=== PATIENT | male | born 1950 | race Caucasian/White ===

== ENCOUNTER 2024-05-24 10:11 | Emergency (ER) | payer OTHER ==
[2024-05-24] MEDS ORDERED: NA CHLORIDE 0.9% 500 ML ONE (10:48)
[2024-05-24 11:07] LABS: Absolute Lymphocytes (CBC) 1.5 K/uL (0.7-4.9); Absolute Monocytes 0.7 K/uL (0.1-1.3); Absolute Neutrophil 9.6 K/uL (1.8-8.0); Basophils % 0.4 % (0-1.3); Eosinophils % 0.3 % (0-4.4); Hematocrit 42.3 % (39.6-49.0); Hemoglobin 14.3 g/dL (13.6-17.9); Lymphocytes % 12.3 % (15.3-44.8); MCHC 33.8 g/dL (32.0-36.0); MCV 85.9 fL (80-100); MPV 7.5 fL (7.6-11.3); Monocytes % 6.2 % (3.3-12.3); Neutrophils % 80.8 % (41.7-73.7); Nucleated Red Blood Cells % 0.2 % (0-0); Platelets 313 thou/uL (152-406); RBC Red Blood Cell Count 4.93 M/uL (4.33-5.43); Red Cell Distribution Width 15.9 % (12.1-15.2)
[2024-05-24 11:20] LABS: Influenza A Ag Negative; Influenza B Ag Negative; SARS-CoV-2 Antigen Rapid Res Negative (Negative)
[2024-05-24 11:22] LABS: PT Prothrombin Time 12.3 SECONDS (9.4-12.5); Protime INR 1.17
[2024-05-24 11:26] LABS: ALT/SGPT 20 U/L (16-61); Albumin 3.8 g/dL (3.4-5.0); Albumin/Globulin Ratio 0.7 (1.1-1.8); Alkaline Phosphatase 157 U/L (45-117); Anion Gap 11.3 mEq/L (5.0-15.0); BUN Blood Urea Nitrogen 23 mg/dL (7-18); Bicarbonate 26 mEq/L (21-32); Bilirubin Direct 0.2 mg/dL (0-0.2); Bilirubin Indirect, Calculated 0.4 mg/dL (0.2-0.8); Bilirubin Total 0.6 mg/dL (0.2-1.0); Globulin 5.6 g/dL (2.3-3.5); Glomerular Filtration Rate 48 ml/min (=/>90); Glucose Level 180 mg/dL (74-106); Lipase 10 U/L (13-75); NT PRO-BNP 705 pg/mL (<450); Protein, Total 9.4 g/dL (6.4-8.2); Sodium Level 136 mEq/L (136-145)
[2024-05-24 11:28] LABS: AST/SGOT 19 U/L (15-37); Magnesium 2.3 mg/dL (1.6-2.4); Potassium 4.3 mEq/L (3.5-5.1); Troponin High Sensitivity < 3.0 pg/mL (<58.9)
--- NOTE | 2024-05-24 11:59 | RAD REPORT ---
EXAMINATION: ONE VIEW CHEST XR CLINICAL INDICATION: DYSPNEA TECHNIQUE: Frontal chest projection is submitted. Examination is limited by patient positioning and t echnique. COMPARISON: No prior exam. FINDINGS: Moderate bilateral pulmonary opacities may represent pulmonary edema or pneumonia. Trace bilateral pl eural fluid. The heart is upper limit of normal in size. Evidence of previous trauma-related rib and left shoulder findings.
--- NOTE | 2024-05-24 13:49 | ER ---
Nurse's Notes [facility] Name: Parker Gonzalez Age: 74 yrs Sex: Male : 1950 Arrival Date: 05/24/2024 Time: 10:11 Bed 14 Private MD: Diagnosis: Food in esophagus;Dyspnea, unspecified;Pneumonia due to other specified bacteria;COPD/ Chronic obstructive pulmonary disease, unspecified;Vomiting Presentation: 05/24 10:30 Chief complaint: Patient states: Shortness of breath, N/V and shortness of breath that ss began yesterday. Coronavirus screen: Client denies travel out of the [place] in the last 14 days. Ebola Screen: Patient denies exposure to infectious person. Patient denies travel to an Ebola-affected area in the 21 days before illness onset. Initial Sepsis Screen: Does the patient have a suspected source of infection? No. Patient's initial sepsis screen is negative. Risk Assessment: Do you want to hurt yourself or someone else? Patient reports no desire to harm self or others. Onset of symptoms was May 23, 2024. 10:30 Method Of Arrival: Ambulatory ss 10:30 Acuity: AARON 2 ss 16:09 Initial Sepsis Screen: Does the patient meet any 2 criteria? HR > 90 bpm. db Triage Assessment: 16:10 General: Appears in no apparent distress. Respiratory: the patient has mild shortness db of breath. Historical: - Allergies: 10:44 No Known Allergies; ss - Immunization history:: Adult Immunizations unknown. - Infectious Disease History:: Denies. - Social history:: Smoking status: unknown. Screenin:09 [facility] ED Fall Risk Assessment (Adult) History of falling in the last 3 months, db including since admission No falls in past 3 months (0 pts) Confusion or Disorientation No (0 pts) Intoxicated or Sedated No (0 pts) Impaired Gait No (0 pts) Mobility Assist Device Used No (0 pt) Altered Elimination No (0 pt) Score/Fall Risk Level 0 - 2 = Low Risk Oriented to surroundings, Maintained a safe environment. Abuse screen: Denies threats or abuse. Denies injuries from another. Nutritional screening: No deficits noted. Tuberculosis screening: No symptoms or risk factors identified. Assessment: 11:00 Reassessment: Patient appears in no apparent distress at this time. Patient and/or db family updated on plan of care and expected duration. Pain level reassessed. Patient is alert, oriented x 3, equal unlabored respirations, skin warm/dry/pink. General: Appears in no apparent distress. comfortable, Behavior is calm, cooperative. Pain: Denies pain. Neuro: Level of Consciousness is awake, alert, obeys commands, Oriented to person, place, time, situation. Cardiovascular: Rhythm is regular. Respiratory: Airway is patent Respiratory effort is even, unlabored, Respiratory pattern is regular, symmetrical, Breath sounds are coarse. 12:00 Reassessment: Patient appears in no apparent distress at this time. Patient and/or db family updated on plan of care and expected duration. Pain level reassessed. Patient is alert, oriented x 3, equal unlabored respirations, skin warm/dry/pink. 13:00 Reassessment: Patient appears in no apparent distress at this time. Patient and/or db family updated on plan of care and expected duration. Pain level reassessed. Patient is alert, oriented x 3, equal unlabored respirations, skin warm/dry/pink. 14:00 Reassessment: Patient appears in no apparent distress at this time. Patient and/or db family updated on plan of care and expected duration. Pain level reassessed. Patient is alert, oriented x 3, equal unlabored respirations, skin warm/dry/pink. Patient states feeling better. 15:13 Reassessment: CALLED [place] ER TO GIVE PT REPORT. db 15:17 Reassessment: REPORT GIVEN TO LEISA Daly RN. db 15:26 Reassessment: PATIENT AMBULATORY TO RESTROOM WITH CANE. db 16:06 Reassessment: EMS ARRIVAL FOR PATIENT TRANSFER TO THE [place]. db 16:08 Reassessment: Patient appears in no apparent distress at this time. Patient and/or db family updated on plan of care and expected duration. Pain level reassessed. Patient is alert, oriented x 3, equal unlabored respirations, skin warm/dry/pink. Vital Signs: 10:11 Resp 21; Pulse Ox 85% on R/A; ss 10:30 BP 171 / 97; Pulse 85; Resp 22; Temp 98.1(O); Pulse Ox 96% on R/A; Height 5 ft. 7 in. ; ss 11:30 BP 130 / 99; Pulse 74; Resp 22; Pulse Ox 98% on 2 lpm NC; db 13:00 BP 145 / 88; Pulse 85; Resp 20; Pulse Ox 96% on 2 lpm NC; db 14:30 BP 140 / 86; Pulse 93; Resp 18; Pulse Ox 96% on NC; db 15:15 BP 131 / 77; Pulse 114; Resp 18; Pulse Ox 97% on 2 lpm NC; db 16:00 BP 124 / 69; Pulse 108; Resp 20; Pulse Ox 98% on 2 lpm NC; db ED Course: 10:12 Patient arrived in ED. mr 10:20 Morris Bradley MD is Attending Physician. juanita 10:30 Arm band placed on left wrist. ss 10:44 Siena Mora, JAMEE is Primary Nurse. db 10:44 Triage completed. ss 10:44 EKG done, COVID swab sent to lab. Inserted saline lock: 20 gauge in right antecubital db area, using aseptic technique. Blood collected. Flushed with 10 mL NS. 10:47 Basic Metabolic Panel Sent. kb3 10:47 CBC with Diff Sent. kb3 10:47 LFT's Sent. kb3 10:47 Magnesium Sent. kb3 10:47 NT PRO-BNP Sent. kb3 10:47 PT-INR Sent. kb3 10:47 Troponin HS Sent. kb3 11:29 XRAY Chest (1 view) In Process Unspecified. EDMS 13:44 Second set of blood cultures drawn. db 15:03 Patient has correct armband on for positive identification. Bed in low position. Call db light in reach. Side rails up X 1. Pulse ox on. NIBP on. Warm blanket given. Pillow given. 16:08 Provided Education on: DISCHARGE AND FOLLOWUP. db 16:08 No provider procedures requiring assistance completed. Patient transferred, IV remains db in place. Administered Medications: 10:51 Drug: NS 0.9% IV 500 ml 500 ml IV at 1 bolus once; to be given as a bolus over 30 db minutes Volume: 500 ml; Route: IV; Rate: 1 bolus; Site: right antecubital; 12:00 Follow up: Response: No adverse reaction; IV Status: Completed infusion; IV Intake: db 500ml 14:30 Drug: Glucagon IVP 1 mg IVP once Route: IVP; Site: right antecubital; db 16:09 Follow up: Response: No adverse reaction db 14:30 Drug: Levalbuterol Inhalation 2.5 mg Inhalation once Route: Inhalation; db 16:10 Follow up: Response: No adverse reaction db 14:35 Drug: MethylPrednisoLONE IVP 125 mg IVP once Route: IVP; Site: right antecubital; db 16:10 Follow up: Response: No adverse reaction db 14:35 Drug: Ipratropium Inhalation Aerosol 0.5 mg Inhalation once Route: Inhalation; db 14:50 Drug: levofloxacin IVPB 500 mg 100 ml IVPB once over 60 mins Volume: 100 ml; Route: db IVPB; Infused Over: 60 mins; Site: right antecubital; 16:09 Follow up: Response: No adverse reaction; IV Status: Infusion continued upon transfer; db IV Intake: 75ml 14:50 Drug: morphine IVP or IV 2 mg IVP once over 4 mins Route: IVP; Infused Over: 4 mins; db Site: right antecubital; 16:10 Follow up: Response: No adverse reaction; Pain is decreased db 14:50 Drug: Ondansetron IVP 4 mg IVP once; over 2 minutes Route: IVP; Site: right antecubital;db 16:10 Follow up: Response: No adverse reaction db 15:35 Drug: morphine IVP or IV 2 mg IVP once over 4 mins Route: IVP; Infused Over: 4 mins; db Site: right antecubital; 16:10 Follow up: Response: No adverse reaction; Pain is decreased db Medication: 16:08 VIS not applicable for this client. db Intake: 12:00 IV: 500ml; Total: 500ml. db 16:09 IV: 75ml; Total: 575ml. db Outcome: 13:48 ER care complete, transfer ordered by MD. grant 16:08 Transferred by ground EMS to [facility] Transfer form completed. db X-rays sent w/ patient. 16:08 Condition: stable 16:08 Instructed on the need for transfer, 16:11 Patient left the ED. db Signatures: Dispatcher [employer] EDMorris Meneses MD MD cha Rivera, Mary, Reg Reg mr Ivett Engel, JAMEE RN ss Lorrie Perla RN RN [email or web address] Siena Mora RN RN db Corrections: (The following items were deleted from the chart) 10:57 10:47 SARS-COV-2 Antigen Rapid+I.LAB.JULIO CESAR drawn and sent. kb3 EDMS 10:57 10:47 Influenza Screen (A \T\ B)+BA.LAB.JULIO CESAR drawn and sent. kb3 EDMS
--- NOTE | 2024-05-24 13:49 | EDPHYS ---
Physician Documentation [facility] Name: Parker Gonzalez Age: 74 yrs Sex: Male : 1950 Arrival Date: 05/24/2024 Time: 10:11 Bed 14 Private MD: ED Physician Morris Bradley HPI: 05/24 13:42 This 74 yrs old Male presents to ER via Ambulatory with complaints of juanita Shortness Of Breath. 13:42 The patient has shortness of breath at rest, with light activity. Onset: The juanita symptoms/episode began/occurred yesterday. Duration: The symptoms are continuous, and are steadily getting worse. The patient's shortness of breath is aggravated by coughing. Historical: - Allergies: 10:44 No Known Allergies; ss - Immunization history:: Adult Immunizations unknown. - Infectious Disease History:: Denies. - Social history:: Smoking status: unknown. ROS: 13:42 Constitutional: Negative for fever, chills, and weight loss, Eyes: Negative for injury, juanita pain, redness, and discharge, ENT: Negative for injury, pain, and discharge, Neck: Negative for injury, pain, and swelling, Cardiovascular: Negative for chest pain, palpitations, and edema, Back: Negative for injury and pain, : Negative for injury, bleeding, discharge, and swelling, MS/Extremity: Negative for injury and deformity, Skin: Negative for injury, rash, and discoloration, Neuro: Negative for headache, weakness, numbness, tingling, and seizure, Psych: Negative for depression, anxiety, suicide ideation, homicidal ideation, and hallucinations, Allergy/Immunology: Negative for hives, rash, and allergies, Endocrine: Negative for neck swelling, polydipsia, polyuria, polyphagia, and marked weight changes, Hematologic/Lymphatic: Negative for swollen nodes, abnormal bleeding, and unusual bruising, 13:42 Respiratory: Positive for cough, shortness of breath, wheezing, expiratory, 13:42 Abdomen/GI: Positive for nausea and vomiting, abdominal cramps, Exam: 13:42 Constitutional: This is a well developed, well nourished patient who is awake, alert, juanita and in no acute distress. Head/Face: Normocephalic, atraumatic. Eyes: Pupils equal round and reactive to light, extra-ocular motions intact. Lids and lashes normal. Conjunctiva and sclera are non-icteric and not injected. Cornea within normal limits. Periorbital areas with no swelling, redness, or edema. ENT: Nares patent. No nasal discharge, no septal abnormalities noted. Tympanic membranes are normal and external auditory canals are clear. Oropharynx with no redness, swelling, or masses, exudates, or evidence of obstruction, uvula midline. Mucous membranes moist. Neck: Trachea midline, no thyromegaly or masses palpated, and no cervical lymphadenopathy. Supple, full range of motion without nuchal rigidity, or vertebral point tenderness. No Meningismus. Chest/axilla: Normal chest wall appearance and motion. Nontender with no deformity. No lesions are appreciated. Cardiovascular: Regular rate and rhythm with a normal S1 and S2. No gallops, murmurs, or rubs. Normal PMI, no JVD. No pulse deficits. Back: No spinal tenderness. No costovertebral tenderness. Full range of motion. Male : Normal genitalia with no discharge or lesions. Skin: Warm, dry with normal turgor. Normal color with no rashes, no lesions, and no evidence of cellulitis. MS/ Extremity: Pulses equal, no cyanosis. Neurovascular intact. Full, normal range of motion., bilateral aka Neuro: Awake and alert, GCS 15, oriented to person, place, time, and situation. Cranial nerves II-XII grossly intact. Motor strength 5/5 in all extremities. Sensory grossly intact. Cerebellar exam normal. Normal gait. Psych: Awake, alert, with orientation to person, place and time. Behavior, mood, and affect are within normal limits. 13:42 ECG was reviewed by the Attending Physician. 13:42 Respiratory: the patient does not display signs of respiratory distress, Respirations: no acute changes, Breath sounds: decreased breath sounds, that are moderate, are scattered, rhonchi, that are mild, are scattered, stridor, is not appreciated, + upper airway congestion. wheezing: expiratory Respiratory rate: 22 Vital Signs: 10:11 Resp 21; Pulse Ox 85% on R/A; ss 10:30 BP 171 / 97; Pulse 85; Resp 22; Temp 98.1(O); Pulse Ox 96% on R/A; Height 5 ft. 7 in. ; ss 11:30 BP 130 / 99; Pulse 74; Resp 22; Pulse Ox 98% on 2 lpm NC; db 13:00 BP 145 / 88; Pulse 85; Resp 20; Pulse Ox 96% on 2 lpm NC; db 14:30 BP 140 / 86; Pulse 93; Resp 18; Pulse Ox 96% on NC; db 15:15 BP 131 / 77; Pulse 114; Resp 18; Pulse Ox 97% on 2 lpm NC; db 16:00 BP 124 / 69; Pulse 108; Resp 20; Pulse Ox 98% on 2 lpm NC; db MDM: 10:20 Medical Screening Exam initiated juanita 13:45 Differential diagnosis: Anemia Anxiety Reaction asthma, Bronchitis CHF exacerbation, juanita Nonspecific abd pain, cholecystitis, pancreatitis, viral gastroenteritis, gastroenteritis, Myocardial Infarction pneumonia, Pneumothorax pulmonary edema, reactive airway disease, Sepsis Unstable Angina. Antibiotic administration: Levaquin given. Immunization status: Pneumococcal vaccine: within last 5 years. Influenza vaccine: within last 5 years. Data reviewed: vital signs, nurses notes, lab test result(s), EKG, radiologic studies, plain films. Consideration of Admission/Observation Patient was admitted/placed on observation. Escalation of care including admission/observation considered. I considered the following discharge prescriptions or medication management in the emergency department Medications were administered in the Emergency Department. See MAR. Independent interpretation of the following test(s) in the Emergency Department EKG: See my EKG interpretation above. Test considered but Not performed: CT: no ct c/a/p. 05/24 10:21 Order name: Basic Metabolic Panel; Complete Time: 13: [facility] 05/24 10:21 Order name: CBC with Diff; Complete Time: 13: [facility] 05/24 10:21 Order name: LFT's; Complete Time: 13: [facility] 05/24 10:21 Order name: Magnesium; Complete Time: 13: [facility] 05/24 10:21 Order name: NT PRO-BNP; Complete Time: 13: [facility] 05/24 10:21 Order name: PT-INR; Complete Time: 13: [facility] 05/24 10:21 Order name: Troponin HS; Complete Time: 13: juanita 05/24 10:21 Order name: Urinalysis w/ reflexes 05/24 10:21 Order name: Lipase; Complete Time: 13: [facility] 05/24 10:57 Order name: COVID-19 Ag + Flu A+B Ag; Complete Time: 13:01 [facility] 05/24 13:14 Order name: Blood Culture Adult (2) [facility] 05/24 13:14 Order name: Lactate w/ 2H reflex if indic. [facility] 05/24 10:21 Order name: XRAY Chest (1 view); Complete Time: 13:01 [facility] 05/24 10:21 Order name: Cardiac monitoring; Complete Time: 10:44 [facility] 05/24 10:21 Order name: EKG - Nurse/Tech; Complete Time: [facility] 05/24 10:21 Order name: IV Saline Lock; Complete Time: : [facility] 05/24 10:21 Order name: Labs collected and sent; Complete Time: : [facility] 05/24 10:21 Order name: O2 Per Protocol; Complete Time: [facility] 05/24 10:21 Order name: O2 Sat Monitoring; Complete Time: : [facility] 05/24 13:41 Order name: NPO; Complete Time: 14:23 [facility] EC:42 Rate is 81 beats/min. Rhythm is regular. QRS Dyer is Normal. MD interval is normal. QRS juanita interval is normal. QT interval is normal. No Q waves. T waves are Normal. No ST changes noted. Clinical impression: NSR w/ Non-specific ST/T Changes and No evidence of ischemia. Interpreted by me. Reviewed by me. Administered Medications: 10:51 Drug: NS 0.9% IV 500 ml 500 ml IV at 1 bolus once; to be given as a bolus over 30 db minutes Volume: 500 ml; Route: IV; Rate: 1 bolus; Site: right antecubital; 12:00 Follow up: Response: No adverse reaction; IV Status: Completed infusion; IV Intake: db 500ml 14:30 Drug: Glucagon IVP 1 mg IVP once Route: IVP; Site: right antecubital; db 16:09 Follow up: Response: No adverse reaction db 14:30 Drug: Levalbuterol Inhalation 2.5 mg Inhalation once Route: Inhalation; db 16:10 Follow up: Response: No adverse reaction db 14:35 Drug: MethylPrednisoLONE IVP 125 mg IVP once Route: IVP; Site: right antecubital; db 16:10 Follow up: Response: No adverse reaction db 14:35 Drug: Ipratropium Inhalation Aerosol 0.5 mg Inhalation once Route: Inhalation; db 14:50 Drug: levofloxacin IVPB 500 mg 100 ml IVPB once over 60 mins Volume: 100 ml; Route: db IVPB; Infused Over: 60 mins; Site: right antecubital; 16:09 Follow up: Response: No adverse reaction; IV Status: Infusion continued upon transfer; db IV Intake: 75ml 14:50 Drug: morphine IVP or IV 2 mg IVP once over 4 mins Route: IVP; Infused Over: 4 mins; db Site: right antecubital; 16:10 Follow up: Response: No adverse reaction; Pain is decreased db 14:50 Drug: Ondansetron IVP 4 mg IVP once; over 2 minutes Route: IVP; Site: right antecubital;db 16:10 Follow up: Response: No adverse reaction db 15:35 Drug: morphine IVP or IV 2 mg IVP once over 4 mins Route: IVP; Infused Over: 4 mins; db Site: right antecubital; 16:10 Follow up: Response: No adverse reaction; Pain is decreased db Disposition Summary: 05/24/24 13:48 Transfer Ordered Notes: Transfer Location: [facility] juanita Reason: Higher level of care juanita Condition: Fair juanita Problem: new juanita Symptoms: have improved juanita Accepting Physician: to [place] , pna, dyspnea/ esophageal food bolus(05/24/24 16:11) db Diagnosis - Food in esophagus juanita - Dyspnea, unspecified juanita - Pneumonia due to other specified bacteria juanita - COPD/ Chronic obstructive pulmonary disease, unspecified juanita - Vomiting juanita Forms: - Medication Reconciliation Form juanita - SBAR form juanita Signatures: Dispatcher [employer] EDMS Morris Bradley MD MD cha Blanchard, Shelby, RN RN Siena Mora RN RN db Corrections: (The following items were deleted from the chart) 10:21 10:21 Chest Single View+RAD.RAD.BRZ ordered. EDMS EDMS 10:57 10:21 Influenza Screen (A \T\ B)+BA.LAB.BRZ ordered. EDMS EDMS 10:57 10:21 SARS-COV-2 Antigen Rapid+I.LAB.BRZ ordered. EDMS EDMS 16:11 13:48 to [place] , pna, dyspnea/ esophageal food bolus juanita db
[2024-05-24] MEDS ORDERED: METHYLPREDNISOLONE 125 MG INJ ONE (14:28)
[2024-05-24] MEDS ORDERED: IPRATROPIUM BROM 0.5MG/2.5ML ONE (14:28)
[2024-05-24] MEDS ORDERED: LEVALBUTEROL 1.25 MG/3 ML NEB ONE (14:28)
[2024-05-24] MEDS ORDERED: GLUCAGON 1 MG/VIAL ONE (14:29)
[2024-05-24] MEDS ORDERED: MORPHINE 2 MG/ML SYR ONE ×2 (14:46→15:16)
[2024-05-24] MEDS ORDERED: ONDANSETRON 4 MG/2 ML VIAL ONE (14:46)
[2024-05-24 14:57] LABS: Specific Gravity 1.021 (1.005-1.030); Urine Bilirubin NEGATIVE (Negative); Urine Blood Negative (Negative); Urine Clarity Clear (Clear); Urine Color Light-Yellow (Yellow); Urine Glucose 4+ (Over) (Negative); Urine Ketones 1+ (Negative); Urine Microscopic Reflex YN NO UMIC; Urine Nitrite NEGATIVE (Negative); Urine Protein NEGATIVE (Negative); Urine Urobilinogen Normal (Normal); Urine pH 5.5 (5.0-7.0)
[2024-05-24] MEDS ORDERED: Levofloxacin500mg IV 500 MG/100 ML BAG IV ONE (15:00)
[2024-05-25 06:03] VITALS: TEMP 98.1
[2024-05-25 06:09] VITALS: BP 124/69; O2SAT 98
--- NOTE | 2024-05-27 12:12 | EKG ---
Test Date: 2024-05-24 Test Time: 10:41:30 Bobbin Presser: MALIK MEASUREMENT RESULTS: Intervals: Rate: 81 TX: 176 QRSD: 68 QT: 378 QTc: 439 Davis: P: 52 TX: 176 QRS: 0 T: 54 INTERPRETIVE STATEMENTS: Normal sinus rhythm Normal ECG No previous ECG available for comparison Electronically Signed On 05-27-24 12:10:30 [employer] INSPECT[employer] by Sarbjit Casper
== END 2024-05-24 16:11 ==
LOC: ER 10:11
DX: T18.128A Food in esophagus causing other injury, initial encounter (principal); J15.8 Pneumonia due to other specified bacteria; J44.9 Chronic obstructive pulmonary disease, unspecified; R11.10 Vomiting, unspecified; Z11.52 Encounter for screening for COVID-19
CPT/HCPCS: 96365; 96361; 87040 ×2; 85025; 80048; 36415; 83735; 85610; 80076; 83605; 81003; 84484; 83690; 83880; 71045; 96375; 99285; 87428; J1610; J7614; J7644; J2270 ×2; J2919; J2405; J7040; 93005